=== PATIENT | female | born 1970 | race Caucasian/White ===

== ENCOUNTER 2017-02-26 21:28 | Emergency (ER) | payer MEDICAID ==
[~2017-02-26] VITALS: Wt 96.0 kg
[2017-02-26] MEDS ORDERED: FEXO180T61 PO (23:52)
[2017-02-26] MEDS ORDERED: PSEU120T51 PO (23:52)
[2017-02-26] MEDS ORDERED: FLUT9.9S NASAL (23:52)
[2017-02-26] MEDS ORDERED: CARB15DR48 BOTH EARS (23:53)
--- NOTE | 2017-02-27 00:13 | ERD ---
ER Documentation Chief Complaint Date/Time DATE: 02/27/17 TIME: 00:[address], Bilateral ear pain X4 days, HPI This is a 46-year-old female presents to the ER with multiple complaints. Patient has allergic rhinitis and is complaining of sore throat and bilateral ear pressure. Patient denies any cough. She denies any fevers or chills. She denies any chest pain or shortness of breath. ROS 12 point review of systems was done, all negative except per HPI. Medications Home Meds Active Scripts Carbamide Peroxide* (Debrox*) 6.5% - 15 Ml Drops, 10 DROP BOTH EARS BID for 3 Days, BOTTLE Prov:JUAN JOSÉSAÚLTERESA C 02/26/17 Pseudoephedrine Hcl (Sudafed 12 Hour) 120 Mg Tablet.sa, 120 MG PO BID for 3 Days Prov:JUAN JOSÉ,TERESA C 02/26/17 Fluticasone Propionate (Flonase Allergy Relief) 9.9 Ml Mineral.susp, 1 SPRAY NASAL BID, #1 BOTTLE TO EACH NOSTRIL Prov:JUAN JOSÉTERESA C 02/26/17 Fexofenadine Hcl* (Roma*) 180 Mg Tablet, 180 MG PO DAILY, #30 TAB Prov:JUAN JOSÉTERESA C 02/26/17 Allergies Allergies: Coded Allergies: No Known Allergy (Unverified , 04/23/14) PMhx/Soc History of Surgery: Yes (c/s x1) Anesthesia Reaction: No Hx Neurological Disorder: No Hx Respiratory Disorders: No Hx Cardiac Disorders: No Hx Psychiatric Problems: No Hx Miscellaneous Medical Probl: Yes (dm2) Hx Alcohol Use: No Hx Substance Use: No Hx Tobacco Use: No Smoking Status: Never smoker Physical Exam Vitals Vital Signs Date Time Temp Pulse Resp B/P Pulse Ox O2 Delivery O2 Flow Rate FiO2 02/26/17 22:10 98.4 54 20 128/67 98 Physical Exam GENERAL: The patient is well-developed, well-nourished, in no acute distress. NECK: Cervical spine is non tender with no step off. Supple, no nuchal rigidity HEENT: Atraumatic. Pupils equal, round and reactive to light. Extraocular muscles are grossly intact. Conjunctivae pink, no discharge. Bilateral tympanic membranes are clear with no evidence of erythema, effusion or dulling of the light reflex. There is cerumen impaction in the left ear. No tonsillar erythema, exudates, uvular deviation. Clear rhinorrhea. RESPIRATORY: Clear to auscultation bilaterally. There are no rales, wheezes or rhonchi. HEART: Regular rate and rhythm. No murmurs, clicks, rubs or gallops. EXTREMITIES: No clubbing or cyanosis. Full range of motion. Grossly neurovascularly intact. NEUROLOGIC: Alert and oriented. Cranial nerves II through XII are intact. SKIN: There is no rash. The skin is warm and dry. Procedures/MDM This is a 46-year-old female presents to the ER with multiple complaints. At this time there is no evidence of strep throat or otitis media. Patient likely has sinus pressure secondary to allergic rhinitis. He is not hypoxic or in any respiratory distress. She is afebrile and extremely well-appearing. Patient will be treated for her allergic rhinitis. Patient is to follow-up with her primary care doctor within 1-2 days or return to ER sooner if symptoms worsen. My medical decision making was shared with the patient she understands and agrees with plan. Departure Diagnosis: Primary Impression: Allergic rhinitis Additional Impression: Otalgia of both ears Condition: Stable Patient Instructions: Allergic Rhinitis Additional Instructions: Llame al doctor MAANA y joanne tea ROSSANA PARA DENTRO DE 1-2 MAE.Dgale a la secretaria que nosotros le instruimos hacer esta rossana.Avise o llame si lemus condicin se empeora antes de la rossana. Regresa aqui si peor o no mejor. TERESA CAN Feb 27, 2017 00:13
== END 2017-02-27 00:40 | disposition home or self-care (01) ==
LOC: FTE 21:28
DX: J30.9 Allergic rhinitis, unspecified (principal); H92.03 Otalgia, bilateral; E11.9 Type 2 diabetes mellitus without complications
CPT/HCPCS: 99283

== ENCOUNTER 2018-07-09 00:50 | Emergency (ER) | END 2018-07-09 05:41 | disposition home or self-care (01) ==